=== PATIENT | male | born 1985 | race Native Hawaiian/Other Pacific Islander ===

== ENCOUNTER 2017-06-20 17:14 | Emergency (ER) | payer OTHER ==
[~2017-06-20] VITALS: Ht 167.6 cm; Wt 94.3 kg
[2017-06-20 17:26] VITALS: BP 141/70; TEMP 98
[2017-06-20] MEDS ORDERED: BUPR8SUB2 PO (17:26)
== END 2017-06-20 18:50 | disposition home or self-care (01) ==
LOC: ED 17:14
DX: S93.491A Sprain of other ligament of right ankle, initial encounter (principal); X50.9XXA Other and unspecified overexertion or strenuous movements or postures, initial encounter
CPT/HCPCS: 99282

== ENCOUNTER 2019-11-23 15:38 | Emergency (ER) | payer OTHER ==
[~2019-11-23] VITALS: Ht 170.2 cm; Wt 88.5 kg
[~2019-11-23 15:38] MED LIST: BUPR8SUB2 PO
[2019-11-23 15:46] VITALS: TEMP 98.9
[2019-11-23 17:15] VITALS: BP 118/60
== END 2019-11-23 17:15 | disposition home or self-care (01) ==
LOC: ED 15:38
PROC: 0HQFXZZ Repair Right Hand Skin, External Approach (ICD-10-PCS; principal; 2019-11-23)
DX: S61.011A Laceration without foreign body of right thumb without damage to nail, initial encounter (principal); W27.8XXA Contact with other nonpowered hand tool, initial encounter; Y92.89 Other specified places as the place of occurrence of the external cause
CPT/HCPCS: 90471; 90715; 99282; 99283